=== PATIENT | female | born 1960 | race Caucasian/White ===

== ENCOUNTER 2018-01-02 18:57 | Emergency (ER) | END 2018-01-02 22:46 | disposition home or self-care (01) ==

== ENCOUNTER 2018-08-26 14:05 | Emergency (ER) | END 2018-08-26 18:12 | disposition home or self-care (01) ==

== ENCOUNTER 2018-11-20 17:16 | Emergency (ER) | payer OTHER ==
[~2018-11-20] VITALS: Wt 59.5 kg
[~2018-11-20 17:16] MED LIST: ACET500C5 PO; CEPH-443 PO; NAPR-985 PO
[2018-11-20 17:27] VITALS: BP 140/82; PULSE 82; RESP 19
[2018-11-20] MEDS ORDERED: CEPH-443 PO (18:37)
[2018-11-20] MEDS ORDERED: NEOM28OI2 TP (18:37)
[2018-11-20] MEDS ORDERED: IBUP-1542 PO (18:37)
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
[2018-11-20] MEDS ORDERED: ACETAMINOPHEN 325 MG TAB PO ONE (19:00)
[2018-11-20] MEDS ORDERED: DIPHTH/TET/ACEL PERTUSS (ADULT) 0.5 ML VIAL IM* ONE (19:00)
== END 2018-11-20 18:55 | disposition home or self-care (01) ==
LOC: FTE 17:16
DX: T23.261A Burn of second degree of back of right hand, initial encounter (principal); E11.9 Type 2 diabetes mellitus without complications; X10.2XXA Contact with fats and cooking oils, initial encounter; Y92.9 Unspecified place or not applicable; Z23 Encounter for immunization
CPT/HCPCS: 16000; 90471; 90715; Z7502; Z7610

== ENCOUNTER 2019-07-31 03:33 | Emergency (ER) | payer OTHER ==
[~2019-07-31] VITALS: Ht 154.9 cm; Wt 59.0 kg
[~2019-07-31 03:33] MED LIST changes: +IBUP-1542 PO; +NEOM28OI2 TP; +NITR-58 PO; +PHEN-538 PO
[2019-07-31 03:34] VITALS: BP 171/79; PULSE 78; RESP 22; Ht 154.9 cm; Wt 59.0 kg
[2019-07-31] MEDS ORDERED: KETOROLAC 15 MG INJ IM STA (04:47)
[2019-07-31] MEDS ORDERED: ACETAMINOPHEN 325 MG TAB PO ONE (05:00)
[2019-07-31] MEDS ORDERED: CEFTRIAXONE 1 GM INJ IM ONE (05:00)
== END 2019-07-31 05:10 | disposition home or self-care (01) ==
LOC: FTE 03:33
DX: N39.0 Urinary tract infection, site not specified (principal); E11.9 Type 2 diabetes mellitus without complications; R31.9 Hematuria, unspecified
CPT/HCPCS: 81001; 96372; J0696; J1885; Z7502; Z7610